=== PATIENT | male | born 1950 | race Caucasian/White ===

== ENCOUNTER 2023-04-01 09:53 | Emergency (ER) | payer MEDICARE, BC ==
[~2023-04-01] VITALS: Ht 185.4 cm; Wt 84.1 kg
[~2023-04-01 09:53] MED LIST: DOXE150C PO; FENT1PAT13 TOP; IBAN150T16 PO; PER10325T PO; melatonin PO
[2023-04-01 09:54] VITALS: BP 110/79
[2023-04-01] MEDS ORDERED: CEPH-585 PO (10:48)
== END 2023-04-01 10:56 | disposition home or self-care (01) ==
LOC: ER 09:53
DX: S61.432A Puncture wound without foreign body of left hand, initial encounter (principal); Z88.8 Allergy status to other drugs, medicaments and biological substances; X58.XXXA Exposure to other specified factors, initial encounter; Y93.89 Activity, other specified; Y92.89 Other specified places as the place of occurrence of the external cause; Y99.8 Other external cause status
CPT/HCPCS: 73130; 99283